=== PATIENT | female | born 1980 | race African-American/Black ===

== ENCOUNTER 2022-09-26 12:50 | Emergency (ER) | payer BC ==
[2022-09-26 12:55] VITALS: BP 147/95; PULSE 78; RESP 18; TEMP 97.8
== END 2022-09-26 14:05 | disposition home or self-care (01) ==
LOC: JER 12:50 → JERFT 12:50
PROC: 0HQGXZZ Repair Left Hand Skin, External Approach (ICD-10-PCS; principal; 2022-09-26)
DX: S61.012A Laceration without foreign body of left thumb without damage to nail, initial encounter (principal); W26.0XXA Contact with knife, initial encounter; Y93.G3 Activity, cooking and baking
CPT/HCPCS: 99283-25

== ENCOUNTER 2022-10-05 12:17 | Emergency (ER) | payer SELFPAY ==
[2022-10-05 12:23] VITALS: BP 125/80; PULSE 80; RESP 18; TEMP 98.5; BMI 27.1
== END 2022-10-05 13:09 | disposition home or self-care (01) ==
LOC: JERFT 12:17
DX: Z48.02 Encounter for removal of sutures (principal)
CPT/HCPCS: 99282-25